=== PATIENT | female | born 1985 | race Caucasian/White ===

== ENCOUNTER 2022-12-28 15:06 | Inpatient (IN) | payer OTHER, SELFPAY ==
[2022-12-28 15:10] VITALS: BP 108/67; PULSE 93; RESP 18; TEMP 36.9; O2SAT 98; BMI 20.7
--- NOTE | 2022-12-28 15:25 | EKG12_ITS ---
Test Reason : SOB Blood Pressure : / mmHG Vent. Rate : 092 BPM Atrial Rate : 092 BPM P-R Int : 152 ms QRS Dur : 090 ms QT Int : 354 ms P-R-T Axes : 069 038 049 degrees QTc Int : 437 ms Normal sinus rhythm Normal ECG Confirmed by KIMBER PINEDA, OLU ([id number]), publications editor BONITA AGEE ([id number]) on 01/02/2023 12:20:56 PM Referred By: Confirmed By:OLU QUIROGA MD
--- NOTE | 2022-12-28 15:56 | CT_ITS ---
INDICATION: PE concern post surgery 8 days ago EXAMINATION: CTA Chest WO/W Contrast Injection TECHNIQUE: Helically acquired images were obtained of the chest following administration of IV contrast. A radiation dose optimization technique was used for this scan. 3D postprocessing images including MIPS were reviewed. IV Contrast dosage and agent: IV 100mL Isovue-370 COMPARISON: None. FINDINGS: Lungs: Unremarkable Mediastinum: The cardiomediastinal silhouette is not enlarged. No mediastinal, hilar or axillary adenopathy. The thoracic aorta is unremarkable. No obvious filling defect seen within the visualized pulmonary arteries. Pleura: Trace bilateral pleural effusions. Bones/Soft tissues: There are diffuse degenerative changes of the spine. Upper abdomen: Refer to CT abdomen and pelvis report same date CT/CTA Chest W/WO Contrast IMPRESSION: No evidence of acute pulmonary embolus to segmental level. Trace bilateral pleural effusions. Electronically Signed: Mj Regan MD at 18:03 EDT ,
--- NOTE | 2022-12-28 15:56 | CT_ITS ---
INDICATION: abdominal pain EXAMINATION: CT Abdomen And Pelvis W/ Contrast Injection TECHNIQUE: Helically acquired images were obtained of the abdomen and pelvis after IV contrast. A radiation dose optimization technique was used for this scan. IV Contrast dosage and agent: IV 100mL Isovue-370 Oral contrast: None. COMPARISON: None. FINDINGS: Visualized lung bases: Unremarkable Liver: Periportal edema. Gallbladder: Unremarkable Spleen: Unremarkable Pancreas: Unremarkable Adrenal Glands: Unremarkable Kidneys: Unremarkable Vasculature: Unremarkable GI Tract: Unremarkable Lymphadenopathy: None Peritoneum: No ascites. Bladder: Unremarkable Reproductive organs: Postsurgical changes status post endometriosis surgery. There is a large rim-enhancing air and fluid collection measuring approximately 7.4 x 9.9 x 6.6 cm in the cul-de-sac. Bones/Soft tissues: No suspicious osseous or soft tissue lesions CT/Abdomen/Pelvis W IV Cont ONLY IMPRESSION: 10 cm abscess in the cul-de-sac. This is amenable to CT guided percutaneous drainage. Recommend IR consult. Postsurgical changes status post endometriosis surgery. Periportal edema. Electronically Signed: Mj Regan MD at 18:08 EDT ,
[2022-12-28 15:58] LABS: Absolute Lymphocyte Count 1.09 X10^3/uL (0.83-4.51); Absolute Neutrophil Count 10.7 X10^3/uL (2.0-7.7); Basophil# 0.02 X10^3/uL; Basophil% 0.1 % (0-1); Hemoglobin 9.7 g/dL (12.0-15.0); Lymphocyte # 1.09 X10^3/ul (0.83-4.51); Lymphocyte % 8.1 % (19-41); Mean Corp Hgb Conc 34.6 g/dL (32-36); Mean Corpuscular Volume 89.5 fL (81-99); Monocyte# 1.49 X10^3/uL; Monocyte% 11.1 % (0-10); NRBC Flagged by Analyzer 0 % (0-5); Platelet Count 271 K/mm3 (150-450); RBC Distribution Width CV 13.8 % (11.6-14.6); RBC Distribution Width SD 45.2 fl (35.1-43.9); Red Blood Count 3.13 M/mm3 (4.2-5.4); White Blood Count 13.4 K/mm3 (4.4-11.0)
--- NOTE | 2022-12-28 15:58 | EDS_ITS ---
HPI History of Present Illness Chief Complaint: Shortness of Breath Detail of Chief Complaint: Abdominal pain, fever, shortness of breath Informant: patient Narrative Narrative: Presents to the emergency department with multiple complaints. Patient had surgery for endometriosis 8 days ago in [place]. She tells me they also took her appendix out at that time. Patient comes in complaining of low-grade fever over the last 2 days and abdominal bloating. She complains of pain in the upper abdomen and pain with breathing in the upper abdomen but she actually states that is gotten little bit better. She complains of nausea and decreased appetite. Denies any significant shortness of breath or cough. Patient called her surgeon in [place] and was told to be evaluated for possibility of infection or blood clot in the lung. Patient otherwise has no significant medical history. [facility] Medical History (Updated 12/28/22 @ 22:12 by Miguel Angel Angel) Endometriosis Ovarian cyst Home Medications acetaminophen 325 mg capsule (Tylenol) 1,000 mg PO Q6H PRN pain 12/28/22 [History Last Taken Unknown] ibuprofen 600 mg tablet 600 mg PO Q6H PRN pain 12/28/22 [History Last Taken Unknown] Allergy/AdvReac Type Severity Reaction Status Date / Time No Known Allergies Allergy Verified 12/28/22 15:10 Social History Smoking Status: Never smoker ROS ROS ED Review of Systems ROS Unobtainable: other Constitutional Constitutional ED: Reports fever(s) and lethargy; Denies chills, sweats or weight loss Eyes Eyes: Denies blurry vision, change in vision or diplopia ENT ENT ED: Denies rhinorrhea or sore throat Cardiovascular Cardiovascular: Denies chest pain, orthopnea or racing heartbeat Respiratory/Chest Respiratory/Chest: Reports dyspnea; Denies cough, dyspnea on exertion, orthopnea or sputum Gastrointestinal Gastrointestinal: Reports abdominal pain and nausea; Denies diarrhea or vomiting Genitourinary Genitourinary ED: Denies dysuria, hematuria or urinary frequency Musculoskeletal Musculoskeletal: Denies arthralgias, back pain, myalgias or neck pain Integumentary Denies abscess, Abrasions or rash Neurologic Neurologic: Denies headache(s) or weakness Psychiatric Psychiatric: Denies anxiety, depression or suicidal thoughts Endocrine Endocrinology: Denies polydipsia, polyphagia or polyuria Hematologic/Lymphatic Hematologic/Lymphatic: Denies easy bleeding, easy bruising or lymphadenopathy Allergic/Immunologic Allergic/Immunologic ED: Denies mouth swelling, tongue swelling or urticaria EXAM Physical Exam Const Vital Signs: 12/28/22 15:10 12/28/22 16:26 12/28/22 16:26 Temperature 98.5 F 98.6 F 98.8 F Temperature Source Temporal Oral Oral Pulse Rate 93 91 91 Respiratory Rate 18 18 18 Respiratory Effort Respiratory Depth Respiratory Pattern Blood Pressure 108/67 107/64 107/67 Blood Pressure Mean 80 78 80 Pulse Ox 98 97 97 Oxygen Delivery Method Room Air Room Air Room Air 12/28/22 16:26 12/28/22 16:26 12/28/22 16:26 Temperature Temperature Source Pulse Rate Respiratory Rate Respiratory Effort Normal Respiratory Depth Respiratory Pattern Normal Blood Pressure Blood Pressure Mean Pulse Ox 97 97 Oxygen Delivery Method Room Air Room Air 12/28/22 16:26 12/28/22 18:08 Temperature Temperature Source Pulse Rate 86 Respiratory Rate 17 Respiratory Effort Respiratory Depth Normal Respiratory Pattern Normal Blood Pressure 105/64 Blood Pressure Mean 77 Pulse Ox 96 Oxygen Delivery Method Room Air Room Air Positive well nourished and well developed General Appearance ED: well developed and NAD HEENT Reports TM's clear and moist mucous membranes normocephalic and atraumatic; Negative for trauma or tenderness Tympanic Membrane ED: Yes TM's clear Eyes PERRL and EOMs intact bilaterally General Eye ED: Negative for pale conjunctiva or scleral icterus Neck no lymphadenopathy, supple and no JVD General: Negative for tenderness Chest Wall inspection of chest normal and palpation of chest normal Chest: Negative for tenderness Resp normal respiratory effort and clear to auscultation bilaterally Effort and Inspection: Negative for respiratory distress or pain with movement Auscultation: Negative for rhonchi, wheezes or diminished lung sounds Cardio regular rate, regular rhythm, S1 normal heart sound, S2 normal heart sound and no murmurs Peripheral Pulses: pulses 2+ throughout GI normal to inspection, nondistended, normoactive bowel sounds, soft to palpation, non-distended and no masses GI Narrative: There is palpation over the right upper quadrant and epigastric region with guarding. There is no rebound, rigidity, or pedal signs. Patient has small port incisions on abdominal wall that appear to be healing normally without evidence of cellulitic changes or drainage. Back/Spine no CVA tenderness and no thoracic nor lumbar tenderness Extremity normal to inspection General Extremety ED: Negative for edema General Extremity: Negative for edema Neuro oriented x3, CN's II-XII intact bilaterally, no sensory deficits noted and gait normal Sensorium / Orientation: awake, alert, oriented to person, oriented to place and oriented to time Motor Exam: strength 5/5 throughout and strength abnormal Psych mental status grossly normal Skin no rashes or lesions noted and no wounds MDM MDM MDM Narrative Medical decision making narrative: Patient had an IV line established. CBC with differential obtained showed an elevated white count of 13.4. Chemistries unremarkable. LFTs showed slight elevation in the ALT at 67 and alk phos was mildly elevated 153. Troponin was normal at 4. hCG was negative. CT scan of the abdomen pelvis showed a 10 cm abscess in the cul-de-sac. Patient had periportal edema and what appeared to be a normal gallbladder otherwise. Patient was started on Zosyn IV. Case was discussed with [employer] SUPERVISOR on-call Dr. Valle who will admit patient for IR drainage of abscess. CTA of the chest was negative for PE. Lab Data Attestation: I reviewed the patient's lab results. Labs: Laboratory Results - last 24 hr 12/28/22 12/28/22 12/28/22 15:25 16:08 16:25 WBC 13.4 H RBC 3.13 L Hgb 9.7 L Hct 28.0 L MCV 89.5 MCH 31.0 MCHC 34.6 RDW Std Deviation 45.2 H RDW Coeff of Jasvir 13.8 Plt Count 271 MPV 9.0 Immature Gran % (Auto) 0.700 Neut % (Auto) 80.0 H Lymph % (Auto) 8.1 L [place] % (Auto) 11.1 H Eos % (Auto) 0.0 Baso % (Auto) 0.1 Absolute Neuts (auto) 10.7 H Absolute Lymphs (auto) 1.09 Nucleated RBC % 0 Sodium 139 Potassium 3.7 Chloride 108 H Carbon Dioxide 27.0 Anion Gap 4 L BUN 9 Creatinine 0.61 Estim Creat Clear Calc 119.33 Est GFR (MDRD) Af Amer 141 Est GFR (MDRD) Non-Af 117 BUN/Creatinine Ratio 14.7 Glucose 98 Calcium 8.4 L Total Bilirubin 0.40 Direct Bilirubin 0.16 AST 24 ALT 67 H Alkaline Phosphatase 153 H Troponin I High Sens 4 Total Protein 5.8 L Albumin 2.3 L Globulin 3.5 Lipase 22 Serum , Qual NEGATIVE Radiography Diagnostic Testing: Clinical Impression(s) from Imaging Studies Abdomen/Pelvis CT 12/28/22 15:56 IMPRESSION: 10 cm abscess in the cul-de-sac. This is amenable to CT guided percutaneous drainage. Recommend IR consult. Postsurgical changes status post endometriosis surgery. Periportal edema. Electronically Signed: Mj Regan MD at 18:08 EDT , Chest CTA 12/28/22 15:56 IMPRESSION: No evidence of acute pulmonary embolus to segmental level. Trace bilateral pleural effusions. Electronically Signed: Mj Regan MD at 18:03 EDT , EKG Initial EKG: Attestation: I personally reviewed and interpreted this EKG as follows: Comments: Sinus rhythm with a rate of 92 bpm with no acute ST segment changes Discharge Plan Dx/Rx/DC Orders Clinical Impression: Fever, Leukocytosis, Intra-abdominal abscess Disposition Disposition: Acute Care Hospital [facility] Discharge Date/Time: 12/28/22 21:25
[2022-12-28] MEDS: 0.9% Normal Saline (1000mL) 1,000 ML 150 ML IV (16:16)
[2022-12-28 16:26] VITALS: BP 107/64; BP 107/67; PULSE 91; RESP 18; TEMP 37; TEMP 37.1; O2SAT 97
[2022-12-28 16:40] LABS: AST(SGOT) 24 U/L (15-37); Alanine Aminotransfer ALT/SGPT 67 U/L (13-56); Albumin, Serum 2.3 g/dL (3.2-5.0); Alkaline Phosphatase 153 U/L (45-117); Bilirubin, Direct 0.16 mg/dL (0.00-0.30); Globulin 3.5 g/dL (2.2-4.2); Protein, Total 5.8 g/dL (6.4-8.2)
[2022-12-28 16:52] LABS: Internal QC Validated? YES +Cl - CLEAR BKGD; Pregnancy, Serum, hCG Quali. NEGATIVE Negative
[2022-12-28 17:22] LABS: Anion Gap 4 (5-15); BUN 9 mg/dL (7-18); BUN/Creat Ratio 14.7 RATIO (10-20); Calcium,Total 8.4 mg/dL (8.5-10.1); Chloride 108 mmol/L (98-107); Creatinine, Serum 0.61 mg/dL (0.55-1.02); EST Glomerular Filtration Rate 117 mL/min (>60); Est Glom Filt Rate - Afr Amer 141 mL/min (>60); Estimated Creatinine Clearance 119.33 ml/min; Glucose 98 mg/dL (74-106); Potassium 3.7 mmol/L (3.5-5.1); Sodium Level 139 mmol/L (136-145); Troponin-I HS 4 pg/mL (3.0-54.0)
[2022-12-28 18:08] VITALS: BP 105/64; PULSE 86; RESP 17; O2SAT 96
[2022-12-28 19:20] LABS: Lipase 22 U/L (13-75)
[2022-12-28] MEDS: Piperacil/Tazobactam 4.5 GM in 0.9% Normal Saline (100mL MB+) 100 ML IV (19:26)
[2022-12-28 20:07] VITALS: BP 118/72; PULSE 98; RESP 18; O2SAT 99
[2022-12-28 20:08] VITALS: BP 118/72; PULSE 98; RESP 18; O2SAT 99
--- NOTE | 2022-12-28 21:12 | HP.PCM_ITS ---
HPI - General General Date of Admission: 12/28/22 HPI Narrative ADRIÁN ALBRECHT, is a 37 F who presents with acute upper abdominal pain and shortness of breath increasing over the last few days. she had surgery over a week ago at [place] for endometriosis. She was feeling feverish and bloated. Had nausea with some vomiting. She was evaluated in the ER and CT of the chest was negative for clot and pelvic and abdominal CT scan showed 10 cm pelvic abscess. [facility] Medical History (Updated 12/28/22 @ 22:12 by Miguel Angel Angel) Endometriosis Ovarian cyst Home Medications acetaminophen 325 mg capsule (Tylenol) 1,000 mg PO Q6H PRN pain 12/28/22 [History Last Taken Unknown] ibuprofen 600 mg tablet 600 mg PO Q6H PRN pain 12/28/22 [History Last Taken Unknown] Allergy/AdvReac Type Severity Reaction Status Date / Time No Known Allergies Allergy Verified 12/28/22 15:10 Social History Smoking Status: Never smoker ROS Constitutional Constitutional: Reports systems reviewed and no addt'l complaints, except as d ocumented; Denies as per HPI, change in weight, fatigue, weakness or other Eyes Eyes: Reports systems reviewed and no addt'l complaints, except as documented; Denies as per HPI, change in vision or other ENT HEENT: Reports as per HPI and dizziness; Denies dry mouth, headache(s), loss taste/smell, nasal congestion, nasal discharge, neck pain, sore throat or other Respiratory/Chest Respiratory/Chest: Reports systems reviewed and no addt'l complaints, except as documented Gastrointestinal Gastrointestinal: Reports systems reviewed and no addt'l complaints, except as documented and nausea Musculoskeletal Musculoskeletal: Reports systems reviewed and no addt'l complaints, except as documented; Denies back pain or joint pain Neurologic Neurologic: Reports systems reviewed and no addt'l complaints, except as documented Psychiatric Psychiatric: Reports systems reviewed and no addt'l complaints, except as documented Endocrine Endocrinology: Reports systems reviewed and no addt'l complaints, except as d ocumented Hematologic/Lymphatic Hematologic/Lymphatic: Reports systems reviewed and no addt'l complaints, except as documented Vital Signs Vital Signs Vital Signs: 12/28/22 15:10 12/28/22 16:26 12/28/22 16:26 Temperature 98.5 F 98.6 F 98.8 F Temperature Source Temporal Oral Oral Pulse Rate 93 91 91 Respiratory Rate 18 18 18 Respiratory Effort Respiratory Depth Respiratory Pattern Blood Pressure 108/67 107/64 107/67 Blood Pressure Mean 80 78 80 Pulse Ox 98 97 97 Oxygen Delivery Method Room Air Room Air Room Air 12/28/22 16:26 12/28/22 16:26 12/28/22 16:26 Temperature Temperature Source Pulse Rate Respiratory Rate Respiratory Effort Normal Respiratory Depth Respiratory Pattern Normal Blood Pressure Blood Pressure Mean Pulse Ox 97 97 Oxygen Delivery Method Room Air Room Air 12/28/22 16:26 12/28/22 18:08 12/28/22 20:07 Temperature Temperature Source Pulse Rate 86 98 Respiratory Rate 17 18 Respiratory Effort Respiratory Depth Normal Respiratory Pattern Normal Blood Pressure 105/64 118/72 Blood Pressure Mean 77 87 Pulse Ox 96 99 Oxygen Delivery Method Room Air Room Air 12/28/22 20:08 Temperature Temperature Source Pulse Rate 98 Respiratory Rate 18 Respiratory Effort Respiratory Depth Respiratory Pattern Blood Pressure 118/72 Blood Pressure Mean 87 Pulse Ox 99 Oxygen Delivery Method Room Air Weight Weight: 130 lb 11.2 oz Body Mass Index (BMI) 20.7 Physical Exam Const alert, oriented x3 and no apparent distress HEENT normocephalic Head and Scalp: atraumatic Eyes EOMs intact bilaterally and conjunctivae normal Neck full ROM, no lymphadenopathy, supple and thyroid normal General: trachea midline Lymph Lymphatic: no lymphadenopathy noted Resp normal respiratory effort, no retractions, no use of accessory muscles and clear to auscultation bilaterally Cardio regular rhythm GI normal to inspection, nondistended, normoactive bowel sounds, soft to palpation, non-distended and no masses Inspection: Negative for abdominal distention Palpation: tender Back/Spine no CVA tenderness Extremity normal to inspection Skin no rashes or lesions noted Neuro moves all extremities and deep tendon reflexes 2+ bilaterally Motor Exam: clonus absent Psych mental status grossly normal Results Lab / Micro Data 12/28/22 15:25 12/28/22 15:25 Labs: Laboratory Results - last 24 hr 12/28/22 15:25: WBC 13.4 H, RBC 3.13 L, Hgb 9.7 L, Hct 28.0 L, MCV 89.5, MCH 31.0, MCHC 34.6, RDW Std Deviation 45.2 H, RDW Coeff of Jasvir 13.8, Plt Count 271, MPV 9.0, Immature Gran % (Auto) 0.700, Neut % (Auto) 80.0 H, Lymph % (Auto) 8.1 L, [place] % (Auto) 11.1 H, Eos % (Auto) 0.0, Baso % (Auto) 0.1, Absolute Neuts (auto) 10.7 H, Absolute Lymphs (auto) 1.09, Nucleated RBC % 0, Sodium 139, Potassium 3.7, Chloride 108 H, Carbon Dioxide 27.0, Anion Gap 4 L, BUN 9, Creatinine 0.61, Estim Creat Clear Calc 119.33, Est GFR (MDRD) Af Amer 141, Est GFR (MDRD) Non-Af 117, BUN/Creatinine Ratio 14.7, Glucose 98, Calcium 8.4 L, Troponin I High Sens 4 12/28/22 16:08: Total Bilirubin 0.40, Direct Bilirubin 0.16, AST 24, ALT 67 H, Alkaline Phosphatase 153 H, Total Protein 5.8 L, Albumin 2.3 L, Globulin 3.5, Lipase 22 12/28/22 16:25: Serum , Qual NEGATIVE Micro: Microbiology 12/28/22 16:08 Nasal Secretion SARS-CoV-2 Antigen (Rapid) - Final Radiology Impression Abdomen/Pelvis CT 12/28/22 15:56 IMPRESSION: 10 cm abscess in the cul-de-sac. This is amenable to CT guided percutaneous drainage. Recommend IR consult. Postsurgical changes status post endometriosis surgery. Periportal edema. Electronically Signed: Mj Regan MD at 18:08 EDT , Chest CTA 12/28/22 15:56 IMPRESSION: No evidence of acute pulmonary embolus to segmental level. Trace bilateral pleural effusions. Electronically Signed: Mj Regan MD at 18:03 EDT , Assessment & Plan Assessment/Plan (1) Intra-abdominal abscess: (2) Leukocytosis: (3) Fever: PLAN: Plan Admit for IV Zosyn, IV fluids regular diet now and n.p.o. after midnight for consultation with radiology for possible IR drainage. SCDs. Charges/Coding Visit Charges Inpatient E&M: 27628 Init Hosp L3
[2022-12-28 22:06] VITALS: BMI 21.2
[2022-12-28 22:16] VITALS: BP 117/70; PULSE 94; RESP 18; TEMP 37.9; O2SAT 98
[2022-12-28] MEDS: LACTATED RINGERS 1,000 ML 999 ML IV (22:45)
[2022-12-28] MEDS: Acetaminophen 500 MG Tablet 1000 MG PO (23:08)
[2022-12-28] MEDS: Lactated Ringers 1,000 ML 125 ML IV (23:50)
[2022-12-29] VITALS (14 sets, daily range): BP systolic 93–118; BP diastolic 57–72; PULSE 82–102; RESP 16–21; TEMP 36.6–38.2; O2SAT 95–98
[2022-12-29] MEDS: Piperacil/Tazobactam 3.375 GM in 0.9% Normal Saline (50mL MB+) 50 ML IV ×5 (00:02→22:59)
[2022-12-29] MEDS: Lactated Ringers 1,000 ML 125 ML IV ×2 (04:51→16:07)
--- NOTE | 2022-12-29 06:29 | PCM.PN.OB ---
Subjective Subjective Patient doing well without complaints. Ambulating without difficulty. Denies chest pain, shortness of breath, calf pain/swelling, chills, lightheadedness. had elevated temp, consult IR this am Objective Data Objective Data Vital Signs: Vital Signs Temp Pulse Resp BP Pulse Ox O2 Del Method 100.3 F H 96 18 117/72 95 Room Air 12/29/22 04:47 12/29/22 04:47 12/29/22 04:47 12/29/22 04:47 12/29/22 04:47 12/29/22 04:47 Oxygen Delivery Method Room Air Weight: 131 lb 12.8 oz Body Mass Index (BMI) 21.2 Intake & Output: Intake and Output for Last 24 Hours 12/27/22 12/28/22 12/29/22 23:59 23:59 23:59 Intake Total 2099 677.08 / 677.08 Balance 2099 677.08 / 677.08 Lab / Micro Data 12/28/22 15:25 12/28/22 15:25 Labs: Laboratory Results - last 24 hr 12/28/22 15:25: WBC 13.4 H, RBC 3.13 L, Hgb 9.7 L, Hct 28.0 L, MCV 89.5, MCH 31.0, MCHC 34.6, RDW Std Deviation 45.2 H, RDW Coeff of Jasvir 13.8, Plt Count 271, MPV 9.0, Immature Gran % (Auto) 0.700, Neut % (Auto) 80.0 H, Lymph % (Auto) 8.1 L, [place] % (Auto) 11.1 H, Eos % (Auto) 0.0, Baso % (Auto) 0.1, Absolute Neuts (auto) 10.7 H, Absolute Lymphs (auto) 1.09, Nucleated RBC % 0, Sodium 139, Potassium 3.7, Chloride 108 H, Carbon Dioxide 27.0, Anion Gap 4 L, BUN 9, Creatinine 0.61, Estim Creat Clear Calc 119.33, Est GFR (MDRD) Af Amer 141, Est GFR (MDRD) Non-Af 117, BUN/Creatinine Ratio 14.7, Glucose 98, Calcium 8.4 L, Troponin I High Sens 4 12/28/22 16:08: Total Bilirubin 0.40, Direct Bilirubin 0.16, AST 24, ALT 67 H, Alkaline Phosphatase 153 H, Total Protein 5.8 L, Albumin 2.3 L, Globulin 3.5, Lipase 22 12/28/22 16:25: Serum , Qual NEGATIVE Micro: Microbiology 12/28/22 16:08 Nasal Secretion SARS-CoV-2 Antigen (Rapid) - Final Radiography Diagnostic Testing: Radiology Impression Abdomen/Pelvis CT 12/28/22 15:56 IMPRESSION: 10 cm abscess in the cul-de-sac. This is amenable to CT guided percutaneous drainage. Recommend IR consult. Postsurgical changes status post endometriosis surgery. Periportal edema. Electronically Signed: Mj Regan MD at 18:08 EDT , Chest CTA 12/28/22 15:56 IMPRESSION: No evidence of acute pulmonary embolus to segmental level. Trace bilateral pleural effusions. Electronically Signed: Mj Regan MD at 18:03 EDT , ROS Constitutional Constitutional: Reports systems reviewed and no addt'l complaints, except as documented Cardiovascular Cardiovascular: Reports systems reviewed and no addt'l complaints, except as documented Respiratory/Chest Respiratory/Chest: Reports systems reviewed and no addt'l complaints, except as documented Gastrointestinal Gastrointestinal: Reports systems reviewed and no addt'l complaints, except as documented Physical Exam Const alert, oriented x3 and no apparent distress HEENT Head and Scalp: atraumatic Resp normal respiratory effort GI soft to palpation GI Narrative: mild tender to palpation, incision intact from previous surgery Assessment & Plan (1) Intra-abdominal abscess: COMMENT: IV Zosyn and consultation with radiology for possible IR drainage PLAN: Plan admitted for IR drainage if possible, IV antibiotics. Charges/Coding Visit Charges Inpatient E&M: 90861 Subs Hosp L3
[2022-12-29 06:56] LABS: Absolute Lymphocyte Count 1.03 X10^3/uL (0.83-4.51); Absolute Neutrophil Count 11.3 X10^3/uL (2.0-7.7); Basophil# 0.04 X10^3/uL; Basophil% 0.3 % (0-1); Eosinophil# 0.01 X10^3/uL; Eosinophils% 0.1 % (0-5); Hematocrit 25.5 % (37-47); Hemoglobin 8.7 g/dL (12.0-15.0); Lymphocyte # 1.03 X10^3/ul (0.83-4.51); Lymphocyte % 7.4 % (19-41); Mean Corp Hgb Conc 34.1 g/dL (32-36); Mean Corpuscular Hgb 30.9 pg (27.0-32.0); Mean Corpuscular Volume 90.4 fL (81-99); Mean Platelet Vol. 9.1 fl (6.2-12.0); Monocyte# 1.49 X10^3/uL; Monocyte% 10.7 % (0-10); NRBC Flagged by Analyzer 0 % (0-5); Neutrophil # 11.26 X10^3/uL (2.7-7.7); Neutrophil % 80.8 % (47-70); Platelet Count 262 K/mm3 (150-450); RBC Distribution Width CV 13.7 % (11.6-14.6); RBC Distribution Width SD 45.3 fl (35.1-43.9); Red Blood Count 2.82 M/mm3 (4.2-5.4); White Blood Count 13.9 K/mm3 (4.4-11.0)
--- NOTE | 2022-12-29 07:03 | CT_ITS ---
PROCEDURE: CT DIRECTED ABSCESS DRAINAGE, PERITONEAL DATE OF EXAMINATION: December 29, 2022. INDICATION: Female, 37 years old. Pelvic abscess. PHYSICIAN: Isidro Rhodes M.D. CONSENT: Written informed consent was obtained having explained the risks, benefits and alternatives in detail with the patient who accepted the risks and agreed to proceed. Laboratory review and clinical assessment was performed. CONSCIOUS SEDATION PROTOCOL: The Drugs used were: 1 mg Versed, IV., and 25 mcg Fentanyl, IV. The sedation time was: 22 minutes. Conscious sedation was started at 10:46 AM and terminated at 11:08 AM The conscious sedation protocol was independently monitored. RADIATION DOSAGE (If Supplied By Facility): CTDIvol = ( 9.94 ) mGy, DLP = ( 453.68 ) mGycm. Individualized dose optimization techniques were utilized. TECHNIQUE: CT sections were made through the abdomen and pelvis revealing an abscess in the pelvis. The skin surface was prepped and draped in a sterile fashion. Puncture of this collection was performed initially with a 8.5 [place] catheter and fluid was aspirated. Drainage catheter was then inserted into the collection and formed into position. Additional fluid was aspirated for a total of approximately 210 cc of cloudy fluid. The catheter was sutured into position to allow for continued drainage. Followup CT sections reveals good position of the catheter. CT/CT Guidance Abscess Drg w/Cath IMPRESSION: 1. CT directed drainage of a fluid collection using CT image guidance and image documentation as described. 2. Conscious Sedation protocol utilized with independent monitoring Electronically Signed: Isidro Rhodes MD at 13:28 EDT ,
[2022-12-29 07:16] LABS: ALB/GLOB Ratio 0.6 RATIO (0.9-2.4); AST(SGOT) 29 U/L (15-37); Alanine Aminotransfer ALT/SGPT 65 U/L (13-56); Albumin, Serum 2.1 g/dL (3.2-5.0); Alkaline Phosphatase 181 U/L (45-117); Anion Gap 4 (5-15); BUN 10 mg/dL (7-18); BUN/Creat Ratio 18.9 RATIO (10-20); Calcium,Total 7.9 mg/dL (8.5-10.1); Chloride 109 mmol/L (98-107); Creatinine, Serum 0.53 mg/dL (0.55-1.02); EST Glomerular Filtration Rate 139 mL/min (>60); Est Glom Filt Rate - Afr Amer 168 mL/min (>60); Estimated Creatinine Clearance 137.37 ml/min; Globulin 3.5 g/dL (2.2-4.2); Glucose 101 mg/dL (74-106); Potassium 3.7 mmol/L (3.5-5.1); Protein, Total 5.6 g/dL (6.4-8.2); Sodium Level 140 mmol/L (136-145)
[2022-12-29] MEDS: Acetaminophen 500 MG Tablet 1000 MG PO ×2 (08:36→21:53)
--- NOTE | 2022-12-29 08:47 | NURSING ---
medical records sent Dr. Brian Willams- [facility] where pt states she had procedure done. [place]- phone number [phone], fax [phone]
--- NOTE | 2022-12-29 09:12 | CT_ITS ---
STUDY: CT PELVIS WITHOUT CONTRAST REASON FOR EXAM: Female, 37 years old. Pelvic abscess. RADIATION DOSAGE (If Supplied By Facility): CTDIvol = ( 27.21 ) mGy, DLP = ( 2002.39 ) mGycm TECHNIQUE: Transaxial imaging of the pelvis was performed with oral contrast, and without intravenous administration of contrast material. Rectal contrast was instilled. Individualized dose optimization techniques were used for this CT. COMPARISON: Comparison is made with prior study dated December 28, 2022. FINDINGS: Normal urinary bladder. Contrast is seen within the colon. There is edematous changes in the sigmoid colon. No evidence of extravasation of contrast into the abscess cavity within the pelvis. CT/Pelvis without IV Contrast IMPRESSION: Stable appearance of the abscess cavity in the pelvis. Altered appearance of the sigmoid colon although no direct fistula or connection is present. Electronically Signed: Isidro Rhodes MD at 10:54 EDT ,
[2022-12-29 10:22] LABS: International Normalized Ratio 1.1; Prothrombin Time (Protime)PT. 14.5 SECONDS (11.7-14.9)
[2022-12-29] MEDS: 0.9% Normal Saline (250mL Bag) 250 ML 15 ML IV (10:43)
[2022-12-29] MEDS: Midazolam 2 MG/2 ML Syringe IV (10:46)
[2022-12-29] MEDS: fentaNYL 100 MCG/2 ML Ampul IV (10:47)
[2022-12-29] MEDS: Lidocaine 2% (20 ml mdv) 20 ML Vial INFILT (11:00)
--- NOTE | 2022-12-29 17:02 | PCM.PN.BLA ---
Progress Note seen tonight post ct drainage feeling much better, less nausea, drain in and releasing fluid. cultures sent. no fevers since drain placed, pain controlled. abdomen mildly distended and appropriatley tender continue IV antibiotics until cultures return.
[2022-12-30 04:30] VITALS: BP 103/70; PULSE 78; RESP 18; TEMP 36.6; O2SAT 96
[2022-12-30] MEDS: Piperacil/Tazobactam 3.375 GM in 0.9% Normal Saline (50mL MB+) 50 ML IV ×3 (05:04→18:28)
--- NOTE | 2022-12-30 06:33 | PCM.PN.OB ---
Subjective Subjective Patient doing well without complaints- great improvement since ct drainage. Tolerating PO. Ambulating without difficulty. Denies chest pain, shortness of breath, calf pain/swelling, fevers, chills, lightheadedness. Objective Data Objective Data Vital Signs: Vital Signs Temp Pulse Resp BP Pulse Ox O2 Del Method 97.8 F 78 18 103/70 96 Room Air 12/30/22 04:30 12/30/22 04:30 12/30/22 04:30 12/30/22 04:30 12/30/22 04:30 12/30/22 04:30 Oxygen Delivery Method [5] Room Air Oxygen Delivery Method [4] Room Air Oxygen Delivery Method [3] Room Air Oxygen Delivery Method [2] Room Air Oxygen Delivery Method [1 ( Room Air Initial Baseline)] Oxygen Delivery Method Room Air Weight: 132 lb 4.438 oz Body Mass Index (BMI) 21.2 Intake & Output: Intake and Output for Last 24 Hours 12/28/22 12/29/22 12/30/22 23:59 23:59 23:59 Intake Total 2099 2546.75 / 2546.75 50 / 50 Output Total 40 / 40 Balance 2099 2468.75 / 2468.75 Lab / Micro Data 12/29/22 06:00 12/29/22 06:00 Labs: Laboratory Results - last 24 hr 12/29/22 06:00: WBC 13.9 H, RBC 2.82 L, Hgb 8.7 L, Hct 25.5 L, MCV 90.4, MCH 30.9, MCHC 34.1, RDW Std Deviation 45.3 H, RDW Coeff of Jasvir 13.7, Plt Count 262, MPV 9.1, Immature Gran % (Auto) 0.700, Neut % (Auto) 80.8 H, Lymph % (Auto) 7.4 L, [place] % (Auto) 10.7 H, Eos % (Auto) 0.1, Baso % (Auto) 0.3, Absolute Neuts (auto) 11.3 H, Absolute Lymphs (auto) 1.03, Nucleated RBC % 0, Sodium 140, Potassium 3.7, Chloride 109 H, Carbon Dioxide 27.0, Anion Gap 4 L, BUN 10, Creatinine 0.53 L, Estim Creat Clear Calc 137.37, Est GFR (MDRD) Af Amer 168, Est GFR (MDRD) Non-Af 139, BUN/Creatinine Ratio 18.9, Glucose 101, Calcium 7.9 L, Total Bilirubin 0.50, AST 29, ALT 65 H, Alkaline Phosphatase 181 H, Total Protein 5.6 L, Albumin 2.1 L, Globulin 3.5, Albumin/Globulin Ratio 0.6 L 12/29/22 09:20: PT 14.5, INR 1.1, APTT 32.0 Micro: Microbiology 12/29/22 11:00 Abs - Aerobic & Anaerobic Swabs Gram Stain - Final 12/28/22 16:08 Nasal Secretion SARS-CoV-2 Antigen (Rapid) - Final Radiography Diagnostic Testing: Radiology Impression Abscess Drainage CT 12/29/22 07:03 IMPRESSION: 1. CT directed drainage of a fluid collection using CT image guidance and image documentation as described. 2. Conscious Sedation protocol utilized with independent monitoring Electronically Signed: Isidro Rhodes MD at 13:28 EDT , Pelvis CT 12/29/22 09:12 IMPRESSION: Stable appearance of the abscess cavity in the pelvis. Altered appearance of the sigmoid colon although no direct fistula or connection is present. Electronically Signed: Isidro Rhodes MD at 10:54 EDT , ROS Constitutional Constitutional: Reports systems reviewed and no addt'l complaints, except as documented Cardiovascular Cardiovascular: Reports systems reviewed and no addt'l complaints, except as documented Respiratory/Chest Respiratory/Chest: Reports systems reviewed and no addt'l complaints, except as documented Gastrointestinal Gastrointestinal: Reports systems reviewed and no addt'l complaints, except as documented Physical Exam Const alert, oriented x3 and no apparent distress HEENT Head and Scalp: atraumatic Resp normal respiratory effort GI soft to palpation and non-tender Assessment & Plan (1) Intra-abdominal abscess: COMMENT: IV Zosyn, s/p drainage by IR, clinically improving PLAN: Plan continue IV antibiotics while awaiting cultures, continue IR drain. supportive care. scds, regular diet.
[2022-12-30 07:10] VITALS: O2SAT 96
[2022-12-30 07:58] LABS: Absolute Lymphocyte Count 1.33 X10^3/uL (0.83-4.51); Absolute Neutrophil Count 4.2 X10^3/uL (2.0-7.7); Basophil# 0.03 X10^3/uL; Basophil% 0.5 % (0-1); Eosinophil# 0.04 X10^3/uL; Eosinophils% 0.6 % (0-5); Hematocrit 26.9 % (37-47); Hemoglobin 8.8 g/dL (12.0-15.0); Lymphocyte # 1.33 X10^3/ul (0.83-4.51); Lymphocyte % 21.2 % (19-41); Mean Corp Hgb Conc 32.7 g/dL (32-36); Mean Corpuscular Hgb 29.9 pg (27.0-32.0); Mean Corpuscular Volume 91.5 fL (81-99); Monocyte# 0.62 X10^3/uL; Monocyte% 9.9 % (0-10); NRBC Flagged by Analyzer 0 % (0-5); Neutrophil # 4.15 X10^3/uL (2.7-7.7); Neutrophil % 66.4 % (47-70); POSITIVE MORPHOLOGY YES; Platelet Count 320 K/mm3 (150-450); RBC Distribution Width CV 13.8 % (11.6-14.6); RBC Distribution Width SD 46.6 fl (35.1-43.9); Red Blood Count 2.94 M/mm3 (4.2-5.4); White Blood Count 6.3 K/mm3 (4.4-11.0)
[2022-12-30 08:04] LABS: Differential Indicated SCAN CRITERIA MET
[2022-12-30 08:33] LABS: Differential Comment SCANNED
[2022-12-30 08:36] VITALS: BP 110/75; PULSE 78; RESP 16; TEMP 36.4; O2SAT 99
--- NOTE | 2022-12-30 13:51 | NURSING ---
Pt sat up in chair this morning for 1 hr and 30 min and then again at lunch time for 30 min. Pt has walked the halls twice thus far with her .
[2022-12-30 14:03] VITALS: BP 122/73; PULSE 81; RESP 18; TEMP 36.7; O2SAT 100
--- NOTE | 2022-12-30 15:30 | CASEMGMT ---
FLAKITO SINGH HARVESTER OPERATOR CM to room to meet with patient for initial transition planning/care coordination assessment. FLAKITO SINGH introduced self and role at [facility].? Pt voices understanding and consents to assessment at this time.? Pt resting in bed in no distress at this time but kept her eyes closed during most of the assessment.? @ bedside and answered most of the questions. Care providers, pharmacy, and demographics verified/updated at this time. PCP: Dr Velasquez Specialists: none Preferred Pharmacy: [facility]--if discharges on Sunday. Otherwise, pt gets her medications from [facility] in [place] Insurance:[facility] [place] Prescription Benefit:?none Living Will/HPOA:?Pt does not currently have LW/HCPOA LNOK: Nate Living Arrangements: Lives w/her and son. Independent. Transportation: Hire drivers DME: ?Pt uses no DME and denies needs.? HHC/SNF: No hx of either. No needs identified at this time. Pt and wish for pt to return home and states has no concerns with going home at time of discharge.? PLAN: ?Home Beltran DIXON RN, CM
[2022-12-30 20:48] VITALS: BP 107/67; PULSE 71; RESP 18; TEMP 37.1; O2SAT 99
[2022-12-31] MEDS: Piperacil/Tazobactam 3.375 GM in 0.9% Normal Saline (50mL MB+) 50 ML IV ×2 (00:31→06:40)
[2022-12-31 03:30] VITALS: BP 112/67; PULSE 77; RESP 18; TEMP 36.9; O2SAT 97
--- NOTE | 2022-12-31 05:41 | PCM.PN.OB ---
Subjective Subjective Patient doing well without complaints- great improvement since ct drainage. Tolerating PO. Ambulating without difficulty. Denies chest pain, shortness of breath, calf pain/swelling, fevers, chills, lightheadedness. Objective Data Objective Data Vital Signs: Vital Signs Temp Pulse Resp BP Pulse Ox O2 Del Method 98.4 F 77 18 112/67 97 Room Air 12/31/22 03:30 12/31/22 03:30 12/31/22 03:30 12/31/22 03:30 12/31/22 03:30 12/31/22 03:30 Oxygen Delivery Method [5] Room Air Oxygen Delivery Method [4] Room Air Oxygen Delivery Method [3] Room Air Oxygen Delivery Method [2] Room Air Oxygen Delivery Method [1 ( Room Air Initial Baseline)] Oxygen Delivery Method Room Air Weight: 132 lb 4.438 oz Body Mass Index (BMI) 21.2 Intake & Output: Intake and Output for Last 24 Hours 12/29/22 12/30/22 12/31/22 23:59 23:59 23:59 Intake Total 2546.75 / 2546.75 1020 / 1020 Output Total 78 / 78 100 / 100 Balance 2468.75 / 2468.75 920 / 920 -10 Lab / Micro Data 12/30/22 06:46 12/29/22 06:00 Labs: Laboratory Results - last 24 hr 12/30/22 06:46: WBC 6.3, RBC 2.94 L, Hgb 8.8 L, Hct 26.9 L, MCV 91.5, MCH 29.9, MCHC 32.7, RDW Std Deviation 46.6 H, RDW Coeff of Jasvir 13.8, Plt Count 320, MPV 9.0, Immature Gran % (Auto) 1.400 H, Neut % (Auto) 66.4, Lymph % (Auto) 21.2, [place] % (Auto) 9.9, Eos % (Auto) 0.6, Baso % (Auto) 0.5, Absolute Neuts (auto) 4.2, Absolute Lymphs (auto) 1.33, Nucleated RBC % 0, Differential Comment SCANNED Micro: Microbiology 12/29/22 11:00 Abs - Aerobic & Anaerobic Swabs Gram Stain - Final 12/29/22 11:00 Abs - Aerobic & Anaerobic Swabs Wound Culture - Preliminary Presumptive E. coli 12/28/22 16:08 Nasal Secretion SARS-CoV-2 Antigen (Rapid) - Final ROS Constitutional Constitutional: Reports systems reviewed and no addt'l complaints, except as documented Cardiovascular Cardiovascular: Reports systems reviewed and no addt'l complaints, except as documented Respiratory/Chest Respiratory/Chest: Reports systems reviewed and no addt'l complaints, except as documented Gastrointestinal Gastrointestinal: Reports systems reviewed and no addt'l complaints, except as documented Physical Exam Const alert, oriented x3 and no apparent distress HEENT Head and Scalp: atraumatic Resp normal respiratory effort GI soft to palpation and non-tender Assessment & Plan (1) Intra-abdominal abscess: COMMENT: IV Zosyn, s/p drainage by IR, clinically improving. E Coli on culture, await sensitivities. leukocytosis resolved. PLAN: Plan continue IV antibiotics while awaiting cultures, continue IR drain. supportive care. scds, regular diet.
[2022-12-31 07:31] LABS: Ferritin 103 ng/mL (8-252); Iron 65 ug/dL (50-170); Iron Binding Capacity,Total 182 ug/dL (250-450); PERCENT IRON SATURATION 35.7 % (15.0-55.0)
[2022-12-31 09:05] VITALS: BP 101/61; PULSE 77; RESP 18; TEMP 36.6; O2SAT 98
--- NOTE | 2022-12-31 09:37 | DCINST_ITS ---
Discharge Instructions Diet Discharge Diet: No restrictions Activity Discharge Activity: Return to Normal Activity and May Shower May resume sexual activity in: 1 week Weight Bearing Status: Full weight bearing Dressing / Incision Call your doctor if your incision/area has: Continuous Slow Oozing, Sudden Increased Bleeding, Increased Pain/ Swelling, Increased Redness and Foul S melling Discharge Call your doctor if you observe: Fever of 101 or Higher, Using more than 1 pad per hour, Shortness of breath, Chest pain and Uncontrolled pain Suture Line Care: Avoid Pulling/Pushing and Avoid Pinching/Bending Remove Dressing in: 1 week (if present) Cleanse incision/area with: Soap & Water and Keep Dressing Clean & Dry Drain: Suction (empty every 6-8 hours or as needed as instructed. dispose of fluid and wash hands thoroughly.) Follow Up Care When: Call to make an appointment this coming week on /sunday with Dr Valle, our office will call you sunday after talking with radiology to determine exact follow up imaging instructions and drain removal recommendations. Test Results: Test results from this visit will be discussed in further detail at your follow- up appointment, if applicable. Discharge Plan Admission Admit Date/Time: 12/29/22 17:25 Attending Provider: Radha Valle Primary Care Provider: Steven Velasquez Consulting Providers: Isidro Rhodes Instructions Patient Instructions: AMOR RN Abscess Drainage, AMOR RN Procedural Sedation Discharge Orders/Prescriptions Prescriptions: New amoxicillin-pot clavulanate [Augmentin XR] 1,000-62.5 mg tablet extended release 12 hr 1 tab PO BID 10 Days Qty: 20 0RF No Action ibuprofen 600 mg tablet 600 mg PO Q6H PRN (Reason: pain) Patient Comments: TAKE 1 TABLET BY MOUTH EVERY 6 HOURS NEEDED FOR PAIN acetaminophen [Tylenol] 325 mg capsule 1,000 mg PO Q6H PRN (Reason: pain) Referrals / Follow Up: Steven Velasquez DO [Primary Care Provider] - Disposition Disposition (needs filled in before D/C Order can be placed): Home, Self Care
--- NOTE | 2022-12-31 09:46 | PCM.DC.BLA ---
Discharge Summary Date of Admission: 12/28/22 Date of Discharge: 12/31/22 Summary: Patient was admitted for postop pelvic abscess was identified on CT scan. Patient had surgery in [place] for endometriosis laparoscopic peritoneal stripping. After receiving CT-guided drainage and IV antibiotics patient clinically improved significantly and was stable for discharge to home on 12/31. Culture grew E. coli that was pansensitive. White count normalized and bowel movements were within normal limits. Patient was tolerating p.o. and had adequate pain control with very minimal medication. Patient was instructed on drain care and she is to follow-up the end of the week for drain removal and possible repeat imaging pending talking to radiology. Meaningful Use Info Meaningful Use Diagnoses (Choose all that apply): None applicable Discharge Plan Admission Admit Date/Time: 12/29/22 17:25 Attending Provider: Radha Valle Primary Care Provider: Steven Velasquez Consulting Providers: Isidro Rhodes Instructions Patient Instructions: AMOR RN Abscess Drainage, RAD RN Procedural Sedation Discharge Orders/Prescriptions Prescriptions: New amoxicillin-pot clavulanate [Augmentin XR] 1,000-62.5 mg tablet extended release 12 hr 1 tab PO BID 10 Days Qty: 20 0RF No Action ibuprofen 600 mg tablet 600 mg PO Q6H PRN (Reason: pain) Patient Comments: TAKE 1 TABLET BY MOUTH EVERY 6 HOURS NEEDED FOR PAIN acetaminophen [Tylenol] 325 mg capsule 1,000 mg PO Q6H PRN (Reason: pain) Referrals / Follow Up: Steven Velasquez DO [Primary Care Provider] - Disposition Disposition (needs filled in before D/C Order can be placed): Home, Self Care
[2022-12-31 10:18] VITALS: O2SAT 98
--- NOTE | 2022-12-31 11:52 | NURSING ---
Written and Verbal Education given to both and patient regarding taking care of GUERLINE drain. They are both aware that Dr. Richter wants them to measure the output. Example given on the paper this RN provided. This RN also provided several measuring cups for them to use at home. Both and patient said they seem like they will be able to take care of the GUERLINE at home.
== END 2022-12-31 13:15 | disposition home or self-care (01) | DRG 373 ==
LOC: ED 18:39 → MS3 19:50
PROVIDERS: Radiology Diagnostic Radiology; Admitting Provider Obstetrics & Gynecology; Emergency Provider Emergency Medicine; PCP Family Medicine; Visit Provider Obstetrics & Gynecology
DX: K65.1 Peritoneal abscess (principal)
CPT/HCPCS: 36415; 71275; 72192; 74177; 75989; 80048; 80053; 80076; 82728; 83540; 83550; 83690; 84484; 84703; 85025; 85610; 85730; 87040; 87070; 87075; 87077; 87186; 87205; 87811; 93005; 94760; 97802; 99284; J7030; J7050; J7120; Q9967; A4216